=== PATIENT | female | born 1940 | race Caucasian/White ===

== ENCOUNTER → 2018-05-07 | Outpatient (CLI) | payer OTHER ==
[~2018-05-07] MED LIST: PROZAC40 MG PO; RECLAST 55 MG/1002 IVPB; TRAZODONE 150150 M1 PO
== END ==
LOC: M.MRI 15:42
DX: M19.041 Primary osteoarthritis, right hand (principal); M65.841 Other synovitis and tenosynovitis, right hand; M79.89 Other specified soft tissue disorders

== ENCOUNTER → 2019-08-19 | Outpatient (CLI) | payer OTHER | LOC: M.RAD 12:35 | DX: Z12.31 Encounter for screening mammogram for malignant neoplasm of breast (principal); N95.2 Postmenopausal atrophic vaginitis; N91.2 Amenorrhea, unspecified; Z78.0 Asymptomatic menopausal state ==

== ENCOUNTER → 2021-08-21 | Outpatient (CLI) | payer OTHER | LOC: M.RAD 13:11 | PROVIDERS: ATTEND Nurse Practitioner Family | DX: M81.0 Age-related osteoporosis without current pathological fracture (principal); M85.88 Other specified disorders of bone density and structure, other site ==